=== PATIENT | male | born 1970 | race Caucasian/White ===

== ENCOUNTER 2019-08-20 09:31 | Emergency (ER) | payer MEDICAID ==
[~2019-08-20] VITALS: Ht 175.3 cm; Wt 84.0 kg
[2019-08-20 11:01] LABS: CLARITY URINE CLEAR (CLEAR); COLOR URINE YELLOW (YELLOW); KETONES URINE TRACE (NEGATIVE); LEUKOCYTE ESTERASE URINE NEGATIVE (NEGATIVE); NITRITE URINE NEGATIVE (NEGATIVE); OCCULT BLOOD URINE NEGATIVE (NEGATIVE); PH URINE 6.5 (4.5-8.0); PROTEIN URINE NEGATIVE (NEGATIVE); SPECIFIC GRAVITY URINE 1.022 (1.005-1.030)
[2019-08-20 11:26] VITALS: BP 137/82
== END 2019-08-20 11:27 | disposition home or self-care (01) ==
LOC: ER 09:31
DX: Z76.89 Persons encountering health services in other specified circumstances (principal); Z80.52 Family history of malignant neoplasm of bladder; R03.0 Elevated blood-pressure reading, without diagnosis of hypertension; F12.90 Cannabis use, unspecified, uncomplicated; F15.10 Other stimulant abuse, uncomplicated
CPT/HCPCS: 81003; 99283

== ENCOUNTER 2019-08-23 15:31 | Emergency (ER) | payer MEDICAID ==
[~2019-08-23] VITALS: Ht 175.3 cm; Wt 84.0 kg
[2019-08-23 17:40] VITALS: BP 143/83
== END 2019-08-23 18:31 | disposition home or self-care (01) ==
LOC: ER 15:31
DX: H81.10 Benign paroxysmal vertigo, unspecified ear (principal)
CPT/HCPCS: 99281